=== PATIENT | male | born 1960 | race Caucasian/White ===

== ENCOUNTER 2020-02-24 02:42 | Observation (INO) ==
[2020-02-24] MEDS ORDERED: *HR* FentaNYL (PF) 100 MCG/2 ML VIAL IVP STA (03:04)
[2020-02-24] MEDS ORDERED: Isovue-370 500 ML BOTTLE IVP ONE (03:21)
[2020-02-24 03:32] LABS: Basophils # 0.1 K/mcL (0.0-0.2); Basophils % 0.4 %; Eosinophils # 0.1 K/mcL (0.0-0.6); Eosinophils % 0.8 %; Hematocrit 45.5 % (37.5-50.1); Hemoglobin 15.1 g/dL (12.9-16.9); Immature Granulocytes % 0.3 % (0-4); Lymphocytes # 2.2 K/mcL (0.6-4.6); Lymphocytes % 16.7 %; Mean Corpuscular HGB Conc 33.2 g/dL (31.6-35.5); Mean Corpuscular Hemoglobin 30.2 pg (28.0-33.3); Mean Platelet Volume 9.8 fL (9.4-12.4); Monocytes # 1.3 K/mcL (0.0-1.3); Monocytes % 9.5 %; Neutrophils # 9.6 K/mcL (1.6-8.9); Platelet Count 356 K/mcL (140-400); Red Cell Distribution Width 13.1 % (11.5-14.5); Segmented Neutrophils % 72.3 %; White Blood Count 13.3 K/mcL (4.3-11.1)
[2020-02-24 03:52] LABS: BUN/Creatinine Ratio 14 (6-26); Blood Urea Nitrogen 10 mg/dL (6-20); Calcium 9.9 mg/dL (8.6-10.3); Carbon Dioxide 28 mEq/L (23-29); Chloride 103 mEq/L (98-107); Glucose 108 mg/dL (70-105); Osmolality,Calculated 286 (280-300); Potassium 3.8 mEq/L (3.5-5.1); Sodium 138 mEq/L (136-145); eGFR For African Americans > 60 (> 60); eGFR For Non-African Americans > 60 (> 60)
[2020-02-24] MEDS ORDERED: cefTRIAXone 1,000 MG in Water for inj. (sterile) 10 ML IVP ONE (05:23)
[2020-02-24] MEDS ORDERED: Naloxone 0.4 MG/ML INJ IVP PRN ×2 (05:35→12:39)
[2020-02-24] MEDS ORDERED: cefTRIAXone 1,000 MG in Water for inj. (sterile) 10 ML IVP SCH (10:00)
[2020-02-24] MEDS ORDERED: *HR* FentaNYL (PF) 100 MCG/2 ML VIAL ONE (10:32)
[2020-02-24] MEDS ORDERED: *HR* Propofol 200 MG/20 ML VIAL IVP ONE (10:32)
[2020-02-24] MEDS ORDERED: Lidocaine -MPF 2% 2 ML VIAL ONE ×2 (10:34)
[2020-02-24] MEDS ORDERED: Ondansetron 4 MG/2 ML VIAL ONE (10:53)
[2020-02-24] MEDS: *HR* Labetalol 20 MG/4 ML SYRINGE IVP ONE ×2 (11:50→13:26)
[2020-02-24] MEDS ORDERED: *HR* Labetalol 20 MG/4 ML SYRINGE IVP ONE (11:51)
[2020-02-24] MEDS: Nicotine 14 MG PATCH.TD24 TD SCH (13:29)
[2020-02-24] MEDS ORDERED: ALPRAZolam 1 MG TABLET PO PRN (13:41)
[2020-02-24] MEDS ORDERED: Acetaminophen/Aspirin/Caffeine TABLET PO STA (23:54)
[2020-02-25 05:08] LABS: Basophils # 0.1 K/mcL (0.0-0.2); Basophils % 0.6 %; Eosinophils # 0.3 K/mcL (0.0-0.6); Eosinophils % 3.2 %; Hematocrit 42.9 % (37.5-50.1); Hemoglobin 13.9 g/dL (12.9-16.9); Immature Granulocytes % 0.3 % (0-4); Lymphocytes # 2.6 K/mcL (0.6-4.6); Lymphocytes % 26.8 %; Mean Corpuscular HGB Conc 32.4 g/dL (31.6-35.5); Mean Corpuscular Hemoglobin 30.2 pg (28.0-33.3); Mean Corpuscular Volume 93.3 fL (83.0-100.0); Mean Platelet Volume 10.2 fL (9.4-12.4); Monocytes # 1.3 K/mcL (0.0-1.3); Monocytes % 13.2 %; Neutrophils # 5.4 K/mcL (1.6-8.9); Platelet Count 337 K/mcL (140-400); Segmented Neutrophils % 55.9 %; White Blood Count 9.7 K/mcL (4.3-11.1)
[2020-02-25 05:24] LABS: BUN/Creatinine Ratio 17 (6-26); Blood Urea Nitrogen 16 mg/dL (6-20); Calcium 9.2 mg/dL (8.6-10.3); Carbon Dioxide 28 mEq/L (23-29); Chloride 101 mEq/L (98-107); Glucose 134 mg/dL (70-105); Osmolality,Calculated 285 (280-300); Potassium 3.5 mEq/L (3.5-5.1); Sodium 136 mEq/L (136-145); eGFR For African Americans > 60 (> 60); eGFR For Non-African Americans > 60 (> 60)
[2020-02-25 06:53] VITALS: BP 135/85
[2020-02-25] MEDS: Nicotine 14 MG PATCH.TD24 TD SCH (08:22)
[2020-02-25] MEDS ORDERED: amLODIPine 5 MG TABLET PO SCH ×2 (09:00)
[2020-02-25] MEDS ORDERED: lisinopriL 10 MG TABLET PO SCH ×2 (09:00)
[2020-02-25] MEDS ORDERED: Aminoglycoside Consult 1 EACH MC ONE (09:49)
== END 2020-02-25 09:50 | disposition home or self-care (01) ==
LOC: 3ANU 02:42 → EMEROOARM 02:42 → SUATTDRO 05:42 → 3ANU 06:32
PROVIDERS: ADMIT Internal Medicine; ATTEND Internal Medicine